=== PATIENT | female | born 1990 | race Native Hawaiian/Other Pacific Islander ===

== ENCOUNTER 2016-09-19 00:03 | Emergency (ER) | payer SELFPAY ==
[2016-09-19 00:07] VITALS: BP 126/84; PULSE 74; RESP 14; TEMP 98.1; O2SAT 98
[2016-09-19] MEDS ORDERED: Lidocaine 1% Inj (20ml) IJ ONE (00:24)
[2016-09-19] MEDS ORDERED: TDAP Vaccine 0.5 mL Syr IM ONE (00:24)
--- NOTE | 2016-09-19 00:27 | ED PDOC ---
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 no numbness, weakness distally or other injury. Past Medical History Reviewed: Historical Data, Nursing Documentation, Vital Signs Vital Signs: Last Vital Signs Temp 98.1 F 09/19/16 00:05 Pulse 74 09/19/16 00:05 Resp 14 09/19/16 00:05 BP 126/84 09/19/16 00:05 Pulse Ox 98 09/19/16 00:27 - Medical History PMH: No Chronic Diseases - Family History Family History: States: No Known Family Hx - Social History Current smoker - smoking cessation education provided: No Alcohol: None Drugs: Denies - Immunization History Hx Tetanus Toxoid Vaccination: No - Allergies Allergies/Adverse Reactions: Allergies Allergy/AdvReac Type Severity Reaction Status Date / Time No Known Allergies Allergy Verified 09/19/16 00:07 Review of Systems ROS Statement: Except As Marked, All Systems Reviewed And Found Negative Musculoskeletal: Positive for: Leg Pain Physical Exam - Reviewed Nursing Documentation Reviewed: Yes Vital Signs Reviewed: Yes - Physical Exam Appears: Positive for: Well, Non-toxic, No Acute Distress Skin: Positive for: Normal Color, Warm, DRY Extremity: Positive for: Other (RLE 2cm lac to posterior lower calf. neg schulz. plantar flexion 5/5. n/v intact distally. ) Neurologic/Psych: Positive for: Alert, Oriented. Negative for: Motor/Sensory Deficits - ECG O2 Sat by Pulse Oximetry: 98 Medical Decision Making Medical Decision Making: R tib fib xray no fx no dislocation. wound repaired. to f/u pmd. Procedures - Laceration/Wound Repair Calf Wound Length (cm): 2 Wound's Depth, Shape: superficial Wound Explored: clean Irrigated w/ Saline (ccs): 500 Volume Anesthetic (ccs): 5 Wound Repaired With: Sutures Suture Size/Type: 3:0, nylon Number of Sutures: 4 Layer Closure?: No Wound Complexity: Simple Sterile Dressing Applied?: Yes Progress: pt tolerated well. no complications. Disposition - Clinical Impression Clinical Impression: Leg laceration - Patient ED Disposition Is Patient to be Admitted: No - Disposition Referrals: [facility] [[facility]] Disposition: Routine/Home Disposition Time: 02:31 Condition: GOOD Additional Instructions: keep wound clean with soap and water. cover with dressing daily. sutures can be removed in 10-14 days by pmd. return to ED for severe symptoms. Instructions: Laceration (ED)
[2016-09-19] MEDS ORDERED: Lidocaine 1% Inj (20ml) ONE (01:10)
--- NOTE | 2016-09-19 10:20 | RAD ---
PROCEDURE: Radiographs of the right tibia and fibula. HISTORY: injury COMPARISON: None available. TECHNIQUE: Frontal and lateral views obtained. FINDINGS: BONES: No fracture or destructive lesion. JOINT SPACES: Unremarkable. OTHER FINDINGS: None. IMPRESSION: Unremarkable radiographs of the right tibia and fibula.
== END 2016-09-19 02:41 | disposition home or self-care (01) ==
LOC: H.ER 00:03 → EDBD 00:03 → H.ER 02:41
DX: S81.811A Laceration without foreign body, right lower leg, initial encounter (principal); W22.8XXA Striking against or struck by other objects, initial encounter